=== PATIENT | female | born 1950 | race Caucasian/White ===

== ENCOUNTER → 2021-06-01 | Outpatient (CLI) | payer MEDICARE | LOC: RAD 10:04 | PROVIDERS: ATTEND Internal Medicine | DX: M25.511 Pain in right shoulder (principal); W19.XXXA Unspecified fall, initial encounter ==

== ENCOUNTER → 2024-09-29 | Day surgery (SDC) | payer MEDICARE ==
[2024-09-24 09:25] LABS: BASOPHILS % 0.8 % (0.0-1.0); EOSINOPHILS % 5.4 % (0.0-6.0); LYMPHOCYTES % 20.6 % (18.0-39.1); MONOCYTES % 8.1 % (4.4-11.3); NEUTROPHILS % 64.7 % (38.7-80.0); RED CELL DISTRIBUTION WIDTH 13.8 % (11.7-14.4)
[~2024-09-29] MED LIST: ACETAMINOPHEN 325 MG TAB ONE; ALENDRONATE SOD70 MG; AMLODIPINE BESY10 MG PO; ASPIRIN81 MG PO; ATORVASTATIN CA20 MG PO; B VITAMIN; B-121000 MC2; BENICAR20 MG PO; CITRACAL D + H1 EACH; CLOPIDOGREL75 MG PO; EPHEDRINE SULFATE INJ 50 MG/ML VIAL ONE; FENTANYL CITRATE/PF 100MCG/2 ML INJ ONE; HAIR, SKIN A66.7 MC1; HYOSCYAMINE SULFATE 0.5 MG/ML INJ ONE; LIDOCAINE HCL 10 MG/ML VIAL INJ ONE; LIDOCAINE HCL 2% LOCAL INJ 5 ML SDV VIAL INJ ONE; MELOXICAM7.5 MG PO; MIDAZOLAM HCL 2 MG/2 ML VIAL ONE; MIRALAX17 GM PO; NEURIVA ORIGIN1 EACH; OMEPRAZOLE40 MG PO; ONDANSETRON HCL INJ 2MG/ML 2ML 2 MG/ML VIAL ONE; ONE DAILY COMP1 EACH; PANTOPRAZOLE SO20 MG; PROPOFOL IV EMULSION 10 MG/ML 20 ML VIAL ONE; SEVOFLURANE INHAL SOLN 250 ML PEN BTL ONE; TIZANIDINE HCL4 M1 PO; ULTRAM 50MG50 MG PO; VITAMIN B-121000 MCG PO; VITAMIN E1000 UNI1; ZOLPIDEM TARTRAT5 MG PO
[2024-09-29] MEDS: LACTATED RINGER'S 1,000 ML ONE (09:17)
[2024-09-29] MEDS: ACETAMINOPHEN 325 MG TAB PO ONE (11:10)
[2024-09-29 11:30] VITALS: BP 106/68; PULSE 76; RESP 16; TEMP 97; O2SAT 98
== END | disposition home or self-care (01) ==
LOC: OR 08:25
PROVIDERS: ATTEND Internal Medicine Gastroenterology
DX: Z09 Encounter for follow-up examination after completed treatment for conditions other than malignant neoplasm (principal); D12.5 Benign neoplasm of sigmoid colon; K57.30 Diverticulosis of large intestine without perforation or abscess without bleeding; K64.8 Other hemorrhoids; Z87.19 Personal history of other diseases of the digestive system; D62 Acute posthemorrhagic anemia; I25.10 Atherosclerotic heart disease of native coronary artery without angina pectoris; I12.9 Hypertensive chronic kidney disease with stage 1 through stage 4 chronic kidney disease, or unspecified chronic kidney disease; N18.9 Chronic kidney disease, unspecified; Z88.6 Allergy status to analgesic agent; Z88.2 Allergy status to sulfonamides; Z01.810 Encounter for preprocedural cardiovascular examination; Z01.812 Encounter for preprocedural laboratory examination; Z79.82 Long term (current) use of aspirin; Z79.899 Other long term (current) drug therapy; Z68.27 Body mass index [BMI] 27.0-27.9, adult; Z71.3 Dietary counseling and surveillance; Z95.5 Presence of coronary angioplasty implant and graft
CPT/HCPCS: 36415; 45385; 85025; 93005; J1980; J2003; J2250; J2405; J2704; J3010; J7121; 45384